=== PATIENT | female | born 1960 | race Caucasian/White ===

== ENCOUNTER 2020-04-07 17:14 | Emergency (ER) | payer OTHER ==
[2020-04-07] MEDS ORDERED: HYDROcod/ACETAM 5/325 MG TABLET PO STA (18:51)
--- NOTE | 2020-04-07 19:25 | CT Report ---
PROCEDURE: HEAD WO INDICATIONS: Fall, headache TECHNIQUE: Noncontrast 4.5 mm thick angled axial sections acquired from the foramen magnum to the vertex. For r adiation dose reduction, the following was used: automated exposure control, adjustment of mA and/or kV according to patient size. COMPARISON: None. FINDINGS: Image quality: Excellent. CSF spaces: Basal cisterns are patent. No extra-axial fluid collections. Ventricles are normal in size and shape. Brain: No midline shift. No intracranial masses or hemorrhage. Yu-white matter interface is norm al. Skull and face: Calvarium and visualized facial bones are intact, without suspicious lesions. Sinuses: Visualized sinuses and mastoids are clear. IMPRESSION: No acute intracranial abnormality. Reviewed by: Moustapha Izquierdo MD on 04/07/2020 7:24 PM PST Approved by: Moustapha Izquierdo MD on 04/07/2020 7:24 PM [facility] Station ID: [id number]
--- NOTE | 2020-04-07 19:29 | CT Report ---
PROCEDURE: CERVICAL SPINE WO INDICATIONS: Fall, neck pain TECHNIQUE: Noncontrast 3 mm thick sections acquired from the skull base to the T4 level. Sagittal and coronal r eformats were then constructed. For radiation dose reduction, the following was used: automated exp osure control, adjustment of mA and/or kV according to patient size. COMPARISON: None. FINDINGS: Image quality: Excellent. Bones: No fractures or dislocations. Visualized superior ribs are intact. Soft tissues: Prevertebral soft tissues are normal in thickness. No paravertebral hematomas. No ap ical pneumothoraces. IMPRESSION: No CT evidence of acute or metastatic cervical spine injury Reviewed by: Moustapha Izquierdo MD on 04/07/2020 7:28 PM PST Approved by: Moustapha Izquierdo MD on 04/07/2020 7:28 PM PST Station ID: [id number]
--- NOTE | 2020-04-07 19:33 | XRAY Report ---
PROCEDURE: Shoulder 3 View LT INDICATIONS: fall, shoulder pain TECHNIQUE: 3 views of the shoulder were acquired. COMPARISON: None. FINDINGS: Bones: No fractures or dislocations. No suspicious bony lesions. Visualized ribs appear intact. Soft tissues: No suspicious soft tissue calcifications. IMPRESSION: No acute finding. Reviewed by: Moustapha Izquierdo MD on 04/07/2020 7:31 PM [facility] Approved by: Moustapha Izquierdo MD on 04/07/2020 7:31 PM [facility] Station ID: [id number]
--- NOTE | 2020-04-07 19:39 | ED Physician Documentation ---
History of Present Illness - Stated complaint Stated Complaint: FALL,LEFT SHOULDER PX,HEADACHE - Chief complaint Chief Complaint: Trauma Hd/Nk - History obtained from History obtained from: Patient - History of Present Illness Timing: Today Pain level max: 8 Pain level now: 8 - Additonal information Additional information: 59 year old female states that she tripped and fell landing on her buttocks. States has neck pain, head pain, and left shoulder pain. No loss of consciousness. No numbness or tingling. Worse with movement and better with rest. Took Naprosyn without relief. Rates the head pain as an 8 out of 10. Worse with movement. Better with rest. Review of Systems Ten Systems: 10 systems reviewed and negative Constitutional: denies: Fever, Chills Nose: denies: Rhinorrhea / runny nose, Congestion Respiratory: denies: Cough GI: denies: Nausea, Vomiting, Diarrhea Skin: denies: Rash Musculoskeletal: reports: Neck pain (dull, ache). denies: Back pain Neurologic: denies: Confused, LOC PD PAST MEDICAL HISTORY - Past Medical History Past Medical History: No - Past Surgical History Past Surgical History: No - Present Medications Home Medications: Ambulatory Orders Medication Instructions Recorded Confirmed HYDROcod/ACETAM 5/325 [[place] 5/325] 1 - 2 ea PO Q6H PRN #14 tablet 04/07/20 Methylphenidate [Ritalin] 5 mg PO BID 04/07/20 04/07/20 traZODone [Desyrel] 100 mg PO HS 04/07/20 04/07/20 - Allergies Allergies/Adverse Reactions: Allergies Allergy/AdvReac Type Severity Reaction Status Date / Time No Known Drug Allergies Allergy Verified 04/07/20 17:25 - Living Situation Living Situation: reports: With family Living Arrangement: reports: At home - Social History Does the pt have substance abuse?: No - Family History Family history: reports: Non contributory PD ED PE NORMAL - Vitals Vital signs reviewed: Yes - General General: Alert and oriented X 3, No acute distress - HEENT HEENT: Atraumatic, PERRL, EOMI, Moist mucous membranes - Neck Neck: Supple, no meningeal sign, Other (mild TTP mid cervical spine. NVI. No stepoff or deformity.) - Cardiac Cardiac: RRR - Respiratory Respiratory: No respiratory distress, Clear bilaterally - Abdomen Abdomen: Soft, Non tender, Non distended - Back Back: No spinal TTP - Derm Derm: Warm and dry - Extremities Extremities: Other (L shoulder - TTP over the L AC joint. NVI. O/w normal shoulder exam.) - Neuro Neuro: Alert and oriented X 3, director of infection control 2-12 intact, No motor deficit, No sensory deficit, Normal speech Eye Opening: Spontaneous Motor: Obeys Commands Verbal: Oriented GCS Score: 15 - Psych Psych: Normal mood, Normal affect Results - Vitals Vitals: Vital Signs - 24 hr 04/07/20 04/07/20 17:22 19:53 Temperature 36.9 C 36.9 C Heart Rate 83 68 Respiratory 16 18 Rate Blood Pressure 112/63 103/67 O2 Saturation 96 100 Oxygen O2 Source Room air - Rads (name of study) head CT Radiology: Prelim report reviewed, EMP read contemporaneously, See rad report cervical spine CT Radiology: Prelim report reviewed, EMP read contemporaneously, See rad report L shoulder xray Radiology: Prelim report reviewed, EMP read contemporaneously, See rad report PD MEDICAL DECISION MAKING - ED course Complexity details: reviewed results, re-evaluated patient, considered differential, d/w patient ED course: 59-year-old female presents to the emergency department status post ground-level fall today. Negative head CT, cervical spine CT and left shoulder x-ray. Pain well controlled in the emergency department. Patient is well-appearing, nontoxic. Afebrile. Ambulating without difficulty. We will have her follow-up with her doctor for further care. No other traumatic injuries. Patient is using her arms freely in the emergency department, texting and talking on her phone. Ambulating normally as well. Patient counseled regarding signs and symptoms for which I believe and urgent re-evaluation would be necessary. Patient with good understanding of and agreement to plan and is comfortable going home at this time This document was made in part using voice recognition software. While efforts are made to proofread this document, sound alike and grammatical errors may occur. Departure - Departure Disposition: Home, Self Care Clinical Impression: Neck pain Fall Qualifiers: Encounter type: initial encounter Qualified Code(s): W19.XXXA - Unspecified fall, initial encounter Headache Qualifiers: Headache type: unspecified Headache chronicity pattern: unspecified pattern Intractability: not intractable Qualified Code(s): R51.9 - Headache, unspecified Left shoulder strain Qualifiers: Encounter type: initial encounter Qualified Code(s): S46.912A - Strain of unspecified muscle, fascia and tendon at shoulder and upper arm level, left arm, initial encounter Condition: Good Instructions: ED Mechanical Fall Follow-Up: your,doctor in 1 week [Other] Prescriptions: HYDROcod/ACETAM 5/325 [[place] 5/325] 1 - 2 ea PO Q6H PRN #14 tablet PRN Reason: Pain Comments: Follow-up with your doctor for further care. Thankfully there are no acute findings on your head CT, cervical spine CT, or left shoulder x-ray. Use the pain medication as needed for pain. Do not drink alcohol or drive while on narcotic pain medicine. Note that many narcotic pain relievers also contain tylenol/acetaminophen. Please ensure that your total dose of acetaminophen from all sources does not exceed 3 grams (3000mg) per day. You may constipated on this medication, take a stool softener such as "Colace" twice a day while you are on it. Also recommend a [id number] laxative such as senna or MiraLAX any day that you do not have a bowel movement. If you received narcotic pain medication in the emergency department, do not drive or operate machinery for the next 24 hours. Discharge Date/Time: 04/07/20 20:01
[2020-04-07 19:53] VITALS: BP 103/67
== END 2020-04-07 20:01 | disposition home or self-care (01) ==
LOC: ED 17:14
DX: S46.912A Strain of unspecified muscle, fascia and tendon at shoulder and upper arm level, left arm, initial encounter (principal); R51.9 Headache, unspecified; M54.2 Cervicalgia; W17.89XA Other fall from one level to another, initial encounter
CPT/HCPCS: 70450; 72125; 73030; 99284; A9270

== ENCOUNTER 2021-06-01 14:27 | Emergency (ER) | payer OTHER ==
[2021-06-01 14:34] VITALS: BP 112/98
--- NOTE | 2021-06-01 14:37 | ED Physician Documentation ---
PD HPI HEENT - Stated complaint Stated Complaint: EYE PX - Chief complaint Chief Complaint: Heent - History obtained from History obtained from: Patient - History of Present Illness Timing - onset: How many days ago (3) Timing - duration: Days (3) Timing - details: Gradual onset, Still present Location: Sinuses (frontal pressure headache.), Throat (mild sore throat, with cough), Other (red scaling itchy skin around both eyelids area. No conjunctival redness. No discharge from eyes.) Associated symptoms: Congestion, Cough. No: Fever, Facial swelling Similar symptoms before: Has not had sx before Review of Systems Constitutional: denies: Fever, Chills Eyes: denies: Loss of vision Nose: reports: Rhinorrhea / runny nose, Congestion Throat: reports: Sore throat Respiratory: reports: Cough. denies: Dyspnea Skin: reports: Rash (scaly, itchy on eyelids around eyes.) Musculoskeletal: denies: Neck pain, Back pain PD PAST MEDICAL HISTORY - Past Medical History Past Medical History: Yes Cardiovascular: None Respiratory: None - Past Surgical History Past Surgical History: No - Present Medications Home Medications: Ambulatory Orders Medication Instructions Recorded Confirmed HYDROcod/ACETAM 5/325 [[place] 5/325] 1 - 2 ea PO Q6H PRN #14 tablet 04/07/20 Methylphenidate [Ritalin] 5 mg PO BID 04/07/20 04/07/20 traZODone [Desyrel] 100 mg PO HS 04/07/20 04/07/20 Benzonatate [Tessalon] 100 mg PO TID PRN #15 cap 06/01/21 Betamethasone Aug 0.05% Cream 1 applic TOP BID 5 Days #15 ml 06/01/21 [Diprolene AF 0.05% Cream] Cetirizine [ZyrTEC] 10 mg PO DAILY #15 tablet 06/01/21 dexAMETHasone [Decadron] 4 mg PO DAILY #5 tablet 06/01/21 - Allergies Allergies/Adverse Reactions: Allergies Allergy/AdvReac Type Severity Reaction Status Date / Time No Known Drug Allergies Allergy Verified 06/01/21 14:34 - Social History Does the pt have substance abuse?: No PD ED PE NORMAL - Vitals Vital signs reviewed: Yes - General General: Alert and oriented X 3, No acute distress, Well developed/nourished - HEENT HEENT: PERRL (no flourescein uptake seen. ), EOMI, Other (patches of red, demarced, scaly rash on both lower/upper eyelids. No conjunctival discahrge. Has sore throat and cough, so not just eye process. ) - Neck Neck: Supple, no meningeal sign, No adenopathy - Cardiac Cardiac: RRR, No murmur - Respiratory Respiratory: Clear bilaterally Results - Vitals Vitals: Oxygen O2 Source Room air PD MEDICAL DECISION MAKING - ED course Complexity details: considered differential (given the scaly rash around ey elids, some eye watering, nasal congestion, and some cough, that either environmental or viral. ), d/w patient Departure - Departure Disposition: 01 Home, Self Care Clinical Impression: Eczema of face Upper respiratory infection Qualifiers: URI type: unspecified URI Qualified Code(s): J06.9 - Acute upper respiratory infection, unspecified Condition: Stable Record reviewed to determine appropriate education?: Yes Follow-Up: ROXIE DURAN MD [Primary Care Provider] - Prescriptions: dexAMETHasone [Decadron] 4 mg PO DAILY #5 tablet Betamethasone Aug 0.05% Cream [Diprolene AF 0.05% Cream] 1 applic TOP BID 5 Days #15 ml Benzonatate [Tessalon] 100 mg PO TID PRN #15 cap PRN Reason: Cough Cetirizine [ZyrTEC] 10 mg PO DAILY #15 tablet Comments: I presume your symptoms are either environmental/seasonal allergies or perhaps a a viral upper respiratory infection. It does not sound bacterial so I do not feel antibiotics will be helpful. I would treated with antihistamine cetirizine daily for the next week or 2 for potential allergies. This would be more common association for your periorbital eczema. Less common to come about from viral illnesses. However the treatment would be pretty similar. In addition to the antihistamine, you can use benzonatate for cough. I would also go with Decadron steroid orally for a few days until improving. Also betamethasone cream on the skin eczema twice daily until improved as well. Do not use the topical steroid on your face longer than a week at a time. Recheck if not improved well over the next several days and resolved by 3 to 5 days. I transmitted your prescriptions to [facility] pharmacy in [place]. Discharge Date/Time: 06/01/21 15:31
[2021-06-01] MEDS ORDERED: PROPARACAINE 0.5% OPHTH DROPS 15 ML EACHEYE STA (14:42)
[2021-06-01] MEDS ORDERED: BENZONATATE 100 MG CAPSULE PO STA (15:06)
[2021-06-01] MEDS ORDERED: CHERRY SYRUP 10 ML UDC PO ONE (15:06)
[2021-06-01] MEDS ORDERED: CETIRIZINE 10 MG TABLET PO STA (15:06)
[2021-06-01] MEDS ORDERED: DEXAMETHASONE 10 MG/ML VIAL PO STA (15:06)
== END 2021-06-01 15:31 | disposition home or self-care (01) ==
LOC: ED 14:27
DX: L30.9 Dermatitis, unspecified (principal); J06.9 Acute upper respiratory infection, unspecified
CPT/HCPCS: 99282; 99284; A9270; J3490

== ENCOUNTER 2021-07-12 16:34 | Emergency (ER) | payer OTHER ==
--- OUTSIDE RECORDS SUMMARY | 2021-07-12 16:43 | EXTERNAL MEDICAL SUMMARY RPT | Continuity of Care Document ---
:1960 Author Organization [facility] Address [address] [place] [address] Phone Care Team Providers Name Role Phone Oliver Unavailable Unavailable Allergies No information. Encounters No information. Medications No information. Problems Procedures date description facility [id number] [facility] Results No information. Vital Signs date measurement value source 20210706 weight_standard 167.99 lb 20210706 weight_metric 76.2 kg 20210706 temperature_standard 98.4 F 20210706 temperature_metric 36.89 C 20210706 respiration_rate 16 /min 20210706 height_standard 59 in 20210706 height_metric 149.86 cm 20210706 heart_rate 66 /min 20210706 BP_systolic 123 mm[Hg] 20210706 BP_diastolic 64 mm[Hg] 20210706 BMI 33.9 kg/m2
[2021-07-12] MEDS ORDERED: HYDROmorphone 1 MG/ML CARPUJECT IVP STA (17:11)
[2021-07-12] MEDS ORDERED: BUPIVACAINE 0.5% PF 10 ML VIAL SUBQ STA (17:16)
--- NOTE | 2021-07-12 17:16 | ED Physician Documentation ---
History of Present Illness - Stated complaint Stated Complaint: L JAW PAIN - Chief complaint Chief Complaint: Heent - Additonal information Additional information: 61-year-old female presents emergency department for worsening left lower pos terior molar pain. States she began having a tooth ache on 30 June. She was seen by her surgeon. She was recommended to have a root canal. The soonest she could get it scheduled was for tomorrow at 2 in the afternoon. Despite ibuprofen and Tylenol she continues to have worsening pain. No fevers no jaw swelling or trismus . She denies a history of hypertension or coronary artery disease she is not a smoker. She has no neck pain, chest pain or shortness of air. Review of Systems Constitutional: denies: Fever, Chills Eyes: reports: Reviewed and negative Ears: reports: Reviewed and negative Nose: reports: Reviewed and negative Throat: reports: Dental pain / toothache Cardiac: reports: Reviewed and negative Respiratory: reports: Reviewed and negative GI: reports: Reviewed and negative PD PAST MEDICAL HISTORY - Past Medical History Cardiovascular: None Respiratory: None - Past Surgical History Past Surgical History: No - Present Medications Home Medications: Ambulatory Orders Medication Instructions Recorded Confirmed HYDROcod/ACETAM 5/325 [[place] 5/325] 1 - 2 ea PO Q6H PRN #14 tablet 04/07/20 Methylphenidate [Ritalin] 5 mg PO BID 04/07/20 04/07/20 traZODone [Desyrel] 100 mg PO HS 04/07/20 04/07/20 Benzonatate [Tessalon] 100 mg PO TID PRN #15 cap 06/01/21 Betamethasone Aug 0.05% Cream 1 applic TOP BID 5 Days #15 ml 06/01/21 [Diprolene AF 0.05% Cream] Cetirizine [ZyrTEC] 10 mg PO DAILY #15 tablet 06/01/21 dexAMETHasone [Decadron] 4 mg PO DAILY #5 tablet 06/01/21 - Allergies Allergies/Adverse Reactions: Allergies Allergy/AdvReac Type Severity Reaction Status Date / Time No Known Drug Allergies Allergy Verified 07/12/21 16:38 - Social History Does the pt have substance abuse?: No PD ED PE NORMAL - General General: Alert and oriented X 3, No acute distress - HEENT HEENT: Atraumatic, Ears normal, Moist mucous membranes, Pharynx benign, Dentition benign, Other (Mild tenderness with palpation and tapping to the left lower posterior molar tooth #17. No gumline swelling or erythema. No trismus.) - Neck Neck: Supple, no meningeal sign, No adenopathy - Cardiac Cardiac: RRR, No murmur - Respiratory Respiratory: No respiratory distress, Clear bilaterally Results - Vitals Vitals: Vital Signs - 24 hr 07/12/21 16:38 Temperature 36.5 C Heart Rate 64 Respiratory 16 Rate Blood Pressure 129/71 O2 Saturation 99 Oxygen O2 Source Room air PD MEDICAL DECISION MAKING - ED course Complexity details: reviewed results, re-evaluated patient, considered differential, d/w patient ED course: 61-year-old female presents emergency department with acute Octaviano worsening left lower posterior molar pain. She is scheduled to see her oral surgeon tomorrow for root canal. I initially offered her Dilaudid injection which she accepted. I also offered her an inferior posterior LE volar block but she declined this stating that she was afraid of needles. She is advised warm salt water rinses. Continuation of ibuprofen and Tylenol at home. She will see her oral surgeon tomorrow. Despite her age of 61. She has no history of hypertension or coronary artery disease. She is non-smoker. Denies chest pain or shortness of air. I have low suspicion for ACS given that the tenderness is elicited with palpation of the tooth. Departure - Departure Disposition: 01 Home, Self Care Clinical Impression: Dentalgia Condition: Stable Record reviewed to determine appropriate education?: Yes Comments: Sandy you are seen today in the emergency department for left lower posterior molar pain. You are scheduled for root canal tomorrow. You were given a one- time injection of Dilaudid here in the emergency department. You were offered a nerve block but declined that today. Continue to follow-up with your surgeon tomorrow. In general you can take 600 mg of ibuprofen with food or 500 mg of Tylenol every 4-6 hours. I do recommend that you buy Anbesol or Orajel as a numbing agent [id number] and apply it to your tooth this evening.
[2021-07-12] MEDS ORDERED: HYDROmorphone 1 MG/ML CARPUJECT IM STA (17:19)
[2021-07-12 17:50] VITALS: BP 112/64
== END 2021-07-12 17:50 | disposition home or self-care (01) ==
LOC: ED 16:34
DX: K08.89 Other specified disorders of teeth and supporting structures (principal)
CPT/HCPCS: 96372; 99282; 99283; J1170